=== PATIENT | male | born 1955 | race Caucasian/White ===

== ENCOUNTER → 2022-11-23 | Outpatient (CLI) | payer MEDICARE ==
--- NOTE | 2022-11-23 17:28 | MR ---
EXAMINATION TYPE: MR shoulder LT wo con DATE OF EXAM: 11/23/2022 COMPARISON: None HISTORY: Left shoulder pain and limited range of motion for 2 months Multiplanar multiecho imaging of the left shoulder performed with no contrast. There are shoulder joint effusion. There is fluid around the biceps tendon. The glenoid magan appear intact. Subscapularis tendon is intact. There is large tear of the supraspinatus tendon with retraction. There is mild subacromial joint spac e narrowing. There is spurring at the AC joint with subacromial impingement. No fracture seen. There is some mild increased signal in the infraspinatus tendon near the attachment on the humeral head. IMPRESSION: Large rotator cuff tear with retraction of the supraspinatus tendon. Shoulder joint effusion. There i s multifocal tears of the infraspinatus tendon at the attachment on the humeral head. Subacromial joint space narrowing.
== END | disposition home or self-care (01) ==
LOC: RADMRIMAIN 07:53
PROVIDERS: ATTEND Orthopaedic Surgery
DX: M75.112 Incomplete rotator cuff tear or rupture of left shoulder, not specified as traumatic (principal); M75.42 Impingement syndrome of left shoulder; M19.012 Primary osteoarthritis, left shoulder